=== PATIENT | female | born 1990 | race African-American/Black ===

== ENCOUNTER 2018-11-26 01:02 | Emergency (ER) | payer SELFPAY ==
[~2018-11-26] VITALS: Ht 170.2 cm; Wt 65.3 kg
[2018-11-26] MEDS ORDERED: ONDANSETRON ODT 4 MG TAB.RAPDIS ONE (01:11)
[2018-11-26] MEDS ORDERED: ONDANSETRON PF 4 MG/2 ML VIAL. ONE (01:29)
[2018-11-26] MEDS: ONDANSETRON ODT 4 MG TAB.RAPDIS PO ONE (01:30)
--- NOTE | 2018-11-26 01:49 | PHYS DOC ---
Adult General Chief Complaint Chief Complaint: ABDOMINAL PAIN HPI HPI 28-year-old female presents with lower abdominal pain. The pain is crampy and moderate in intensity. The patient is quite emotional and pressured in her speech. She listed off multiple complaints and maladies right away. Her primary complaint is that she has lower abdominal pain, nausea, vomiting. She tells me that she is unable to keep down liquids or solids for a few days. She is able to drink some lemonade she thinks this is related to her uterine fibroid. This was diagnosed 4 years ago. She denies fever but admits to chills. He has not had increased urinary frequency or dysuria. She has not had change in vaginal discharge, but has requested STD evaluation. She does not believe she is , but would like a test. Review of Systems Review of Systems Constitutional: Denies fever or chills [] Eyes: Denies change in visual acuity, redness, or eye pain [] HENT: Denies nasal congestion or sore throat [] Respiratory: Denies cough or shortness of breath [] Cardiovascular: No additional information not addressed in HPI [] GI: abdominal pain, nausea, vomiting. Denies bloody stools or diarrhea [] : Denies dysuria or hematuria [] Musculoskeletal: Denies back pain or joint pain [] Integument: Denies rash or skin lesions [] Neurologic: Denies headache, focal weakness or sensory changes [] Endocrine: Denies polyuria or polydipsia [] All other systems were reviewed and found to be within normal limits, except as documented in this note. Current Medications Current Medications Current Medications Medications (Trade) Dose Ordered Sig/Asher Start Time Stop Time Status Last Admin Dose Admin Diphenhydramine HCl (Benadryl) 25 mg 1X ONCE 11/26/18 01:45 11/26/18 01:46 UNV Ketorolac Tromethamine (Toradol 30mg Vial) 30 mg 1X ONCE 11/26/18 01:45 11/26/18 01:46 UNV Ondansetron HCl (Zofran Odt) 4 mg 1X ONCE 11/26/18 01:30 11/26/18 01:31 DC Ondansetron HCl (Zofran) 4 mg 1X ONCE 11/26/18 01:30 11/26/18 01:31 UNV Sodium Chloride 1,000 ml @ 1,000 mls/hr 1X ONCE 11/26/18 01:30 11/26/18 02:29 UNV Allergies Allergies Allergies Coded Allergies Type Severity Reaction Last Updated Verified No Known Drug Allergies 11/26/18 No Physical Exam Physical Exam Constitutional: Well developed, well nourished, no acute distress, non-toxic appearance. [] HENT: Normocephalic, atraumatic, bilateral external ears normal, oropharynx moist, no oral exudates, nose normal. [] Eyes: PERRLA, EOMI, conjunctiva normal, no discharge. [] Neck: Normal range of motion, no tenderness, supple, no stridor. [] Cardiovascular:Heart rate regular rhythm, no murmur [] Lungs & Thorax: Bilateral breath sounds clear to auscultation [] Abdomen: Bowel sounds normal, soft, suprapubic tenderness, no masses, no pulsatile masses. [] Skin: Warm, dry, no erythema, no rash. [] Back: No tenderness, no CVA tenderness. [] Extremities: No tenderness, no cyanosis, no clubbing, ROM intact, no edema. [] Neurologic: Alert and oriented X 3, normal motor function, normal sensory func tion, no focal deficits noted. [] Psychologic: Affect pressured, disorganized, judgement normal, mood tearful. : normal external exam. Thick, white discharge. Minimal pain with exam. [] Current Patient Data Lab Results Laboratory Tests Test 11/26/18 01:42 POC Urine HCG, Qualitative hcg negative (Negative) EKG EKG [] Radiology/Procedures Radiology/Procedures [] Course & Med Decision Making Course & Med Decision Making Pertinent Labs and Imaging studies reviewed. (See chart for details) The patient's labs are unremarkable. Her urinalysis is significant for urinary tract infection. I will treat with Rocephin in the ED followed by 5 days of Macrobid. Her urine drug screen is positive for marijuana. This could explain her heightened emotions. The patient is also positive for Trichomonas. I will treat her with 2 g of Flagyl. As she has increased risk of other STDs, we'll treat her with a gram of azithromycin. GC and chlamydia are pending back today. The patient is stable for discharge at this time. [] Dragon Disclaimer Dragon Disclaimer This electronic medical record was generated, in whole or in part, using a voice recognition dictation system. Departure Departure: Impression: Primary Impression: Abdominal pain Additional Impressions: UTI (urinary tract infection) Marijuana use Trichomonal vaginitis Disposition: HOME, SELF-CARE Condition: STABLE Referrals: PCP,NO (PCP) Patient Instructions: Marijuana Abuse and Chemical Dependency, Sexually Transmitted Disease, [id number], Urinary Tract Infection, [id number] Scripts Nitrofurantoin Monohyd/M-Cryst (MACROBID 100 MG CAPSULE) 100 Mg Capsule 1 CAP PO BID for UTI, #10 CAP Prov: DANIEL PARADA DO 11/26/18 Problem Qualifiers Primary Impression: Abdominal pain Abdominal location: lower abdomen, unspecified Qualified Codes: R10.30 - Lower abdominal pain, unspecified Additional Impressions: UTI (urinary tract infection) Urinary tract infection type: acute cystitis Hematuria presence: with hematuria Qualified Codes: N30.01 - Acute cystitis with hematuria DANIEL PARADA DO Nov 26, 2018 01:49
[2018-11-26 01:52] LABS: BASO # 0.1 x10^3/uL (0.0-0.2); BASO % 1 % (0-3); EOS % 0 % (0-3); HEMATOCRIT 38.1 % (36.0-47.0); HEMOGLOBIN 12.7 g/dL (12.0-15.5); LYMPH # 2.3 x10^3/uL (1.0-4.8); LYMPH % 25 % (24-48); MEAN CORPUSCULAR HEMOGLOBIN 34 pg (25-35); MEAN CORPUSCULAR HGB CONC 33 g/dL (31-37); MEAN CORPUSCULAR VOLUME 102 fL (79-100); MONO # 0.7 x10^3/uL (0.0-1.1); MONO % 8 % (0-9); NEUT % 65 % (31-73); PLATELET COUNT 321 x10^3/uL (140-400); RED BLOOD COUNT 3.75 x10^6/uL (3.50-5.40); RED CELL DISTRIBUTION WIDTH 14.7 % (11.5-14.5); WHITE BLOOD COUNT 9.2 x10^3/uL (4.0-11.0)
[2018-11-26] MEDS: IV NORMAL SALINE 1,000ML 1,000 ML IV ONE (01:54)
[2018-11-26] MEDS: KETOROLAC 30 MG/ML VIAL. IV ONE (01:55)
[2018-11-26] MEDS: diphenhydrAMINE 50 MG/ML VIAL IVP ONE (01:55)
[2018-11-26] MEDS: ONDANSETRON PF 4 MG/2 ML VIAL. IV ONE (01:55)
[2018-11-26 02:05] LABS: BACTERIA,URINE MANY /HPF (0-FEW); BARBITURATES NEG (NEG); BENZODIAZEPINES NEG (NEG); BILIRUBIN,URINE NEG (NEG); CANNABINOIDS POS (NEG); CLARITY,URINE HAZY; COCAINE NEG (NEG); COLOR,URINE YELLOW; GLUCOSE,URINE NEG (NEG); METHADONE NEG (NEG); NITRITE,URINE POS (NEG); OPIATES NEG (NEG); PHENCYCLIDINE NEG (NEG); RBC,URINE OCC /HPF (0-2); SQUAMOUS EPITHELIAL CELL,UR OCC /LPF; UROBILINOGEN,URINE 1 mg/dL (0.2 mg/dL); WBC,URINE >40 /HPF (0-4)
[2018-11-26 02:07] LABS: AMPHETAMINE/METHAMPHETAMINE NEG (NEG)
[2018-11-26 02:09] LABS: ALBUMIN 3.9 g/dL (3.4-5.0); GFR 78.8; POTASSIUM 3.4 mmol/L (3.5-5.1); TOTAL BILIRUBIN 0.5 mg/dL (0.2-1.0); TOTAL PROTEIN 7.8 g/dL (6.4-8.2)
[2018-11-26] MEDS ORDERED: NITR100C62 PO (03:04)
[2018-11-26] MEDS ORDERED: IV NORMAL SALINE 50ML 50 ML ONE (03:14)
[2018-11-26] MEDS ORDERED: cefTRIAXone SODIUM 1 GM VIAL ONE (03:14)
[2018-11-26] MEDS: metroNIDAZOLE 500 MG TABLET PO ONE (03:24)
[2018-11-26] MEDS: AZITHROMYCIN 250 MG TABLET. PO ONE (03:25)
[2018-11-27 03:28] VITALS: BP 122/74
[2018-11-27 17:10] LABS: CHLAMYDIA PROBE Negative (Negative)
== END 2018-11-26 03:48 | disposition home or self-care (01) ==
LOC: ER 01:02
DX: A59.01 Trichomonal vulvovaginitis (principal); N30.01 Acute cystitis with hematuria; F12.90 Cannabis use, unspecified, uncomplicated; R11.2 Nausea with vomiting, unspecified
CPT/HCPCS: 36415; 80053; 80307; 81001; 81025; 85025; 87086; 87491; 87591; 96361; 96365; 96375; 99284; J0456; J0696; J1200; J1885; J2405; Q0111; 99285-25; J7030